=== PATIENT | female | born 1970 | race Hispanic/Latino ===

== ENCOUNTER 2016-12-28 08:05 | Day surgery (SDC) | payer OTHER ==
[~2016-12-28] VITALS: Ht 162.6 cm; Wt 71.0 kg
[~2016-12-28 08:05] MED LIST: ACET-171 PO; BENZ200C44 PO; CHOL10008 PO; DULO30CA50 PO; LORA5TAB8 PO; MELO-259 PO; TIZA4CAP8 PO
[2016-12-28 08:32] VITALS: BP 124/84; PULSE 97; RESP 16; O2SAT 99
[2016-12-28] MEDS ORDERED: 0.9% Sodium Chloride 1,000 ML IV PRN (08:52)
[2016-12-28] MEDS ORDERED: fentaNYL-PF 50 mCg/mL 2 mL Inj IVPUSH PRN (08:55)
[2016-12-28] MEDS ORDERED: Sodium Chloride LOK Flush 10 mL Syringe IV PRN (08:55)
--- NOTE | 2016-12-28 09:21 | PCM.ENDEGD ---
EGD Date of Service: Dec 28, 2016 Physician Js Newell MD Pre Procedure Diagnosis: Dysphagia Post Procedure Dx & Findings: Esophagitis gastritis possible Vang's Procedure Esophagogastroduodenoscopy PROCEDURE IN DETAIL: After proper sedation, Olympus video endoscope was inserted into patient's mouth and esophagus was successfully intubated. Scope introduced esophagus. Esophagus showed normal shiny whitish mucosa consistent with squamous cell component. Z line was not intact at 35 cm from the incisors. There was a 2 cm patch of salmon-colored mucosa.. Narrow banding done. 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 Four-quadrant biopsies obtained every 2 cm. Stomach further events to the stomach. Antrum showed isolated redness and healing erosions. Biopsies obtained. Proximal stomach appeared normal with normal rugae folds with normal appearing mucosa.. Cardia fundus body antrum pylorus were all visualized. Retroflexion was done. Stomach was easily inflated and deflatable using air. Scope further events to the distal duodenum. Duodenum revealed normal villous structures with normal appearing folds without any mass ulcer erosion. Impression Possible Vang's esophagus Gastritis with gastric erosions Recommendation Await biopsy Prilosec 20 mg once a day Presedation Assessment Risks and Benefits Informed consent was obtained from the patient after all risks and benefits including but not limited to drug reaction, infection, pain, bleeding, perforation, as well as alternatives were discussed. Patient monitoring Continuous pulse oximetry, cardiac monitoring, blood pressure monitoring, IV access, and oxygen at 2L per nasal cannula. Periprocedural Fentanyl: Fentanyl 100mcg Incrementally Midazolam: Midazolam 4mg Incrementally Complications There were no periprocedural complications identified. Post Procedure Plan Post Procedure Recommendations 1. Restrict activities today. 2. Resume normal activities in the morning. 3. Resume medications. 4. GERD behavioral modification: - Avoid fatty, acidic, spicy, large meals - Do not lie down after meals - Do not eat or drink anything for at least 2 1/2 hours before going to bed at night - Discontinue tobacco and alcohol - Decrease or avoid caffeine - Avoid chocolate and mints - Decrease weight - Avoid aspirin and non steroidal anti-inflammatory agents (NSAID) such as Aleve, Advil, Mobic, Naproxen, Ibuprofen, etc 5. Add proton pump inhibitor. Take 30 minutes before 1st meal of the day. 6. Patient informed of normal post procedure side effects as bloating, drowsiness, blood streaking in the stool 7. If gastric biopsy reveal H.pylori, continue with appropriate treatment 8. If small bowel biopsy reveals celiac, continue with appropriate treatment 9. Please don't hesitate to call me with any questions Js Newell MD Dec 28, 2016 09:21
[2016-12-28 09:23] VITALS: BP 133/80; PULSE 81; RESP 14; O2SAT 96
[2016-12-28 09:33] VITALS: BP 116/70; PULSE 79; RESP 14; O2SAT 96
[2016-12-28 09:43] VITALS: BP 114/69; PULSE 78; RESP 16; O2SAT 97
[2016-12-28 09:53] VITALS: BP 111/74; PULSE 76; RESP 16; O2SAT 100
--- NOTE | 2017-01-02 13:30 | PATH ---
SURGICAL PATHOLOGY Attending Physician:Js Newell M.D. CASE STATUS: Signed Out PATIENT NAME: KARAN LAIRD PID: [id number] : 1970 DATE COLLECTED:12/28/2016 20:12 SPECIMEN: 1: Stomach, Antrum, Biopsy 2: Esophagus, Biopsy CLINICAL HISTORY: 1). GASTRIC ANTRUM BIOPSY 2). DISTAL ESOPHAGUS BIOPSY FINAL DIAGNOSIS: 1. Gastric Antrum Biopsy: Reactive gastropathy, antral mucosa. Positive for intestinal metaplasia. Negative for Helicobacter organisms by immunohistochemical stains. Negative for dysplasia and malignancy. 2. Distal Esophagus Biopsy: Squamocolumnar mucosa with inflammatory changes consistent with reflux. Negative for intestinal/Vang's metaplasia. Negative for dysplasia and malignancy. ICD10 K29.70, K31.89 GROSS DESCRIPTION: The specimen is received in two formalin filled containers labeled with the patient's name. 1). The specimen is sublabeled "gastric antrum" and consists of 2 portions of tissue which aggregate to 0.4 x 0.3 x 0.2 CM. The specimen is entirely submitted in cassette 1A. 2). The specimen is sublabeled "distal esophagus" and consists of 5 portions of tissue which aggregate to 0.3 x 0.3 x 0.2 CM. The specimen is entirely submitted in cassette 2A. 12/28/2016 DAC MICRO DESCRIPTION: 1) Sections are of gastric antral mucosa with reactive gastropathy and focal intestinal metaplasia. No Helicobacter organisms are identified on H&E stains. Immunohistochemical stains are performed to further evaluate for Helicobacter organisms. The patient tissue is stained with monoclonal antibody to Helicobacter pylori (SP48). The positive and negative controls stain appropriately. RESULT: The patient tissue shows no staining. INTERPRETATION: The gastric mucosa is negative for Helicobacter pylori by immunohistochemical stains. * This test was developed and its performance characteristics determined by [employer]. It has not been cleared or approved by the [place]. Food and Drug Administration. The FDA has determined that such clearance or approval is not necessary. This test is used for clinical purposes. It should not be regarded as investigational or for research. 2) Please see diagnosis. ICD-9 CODES: CPT CODES: 1: 94481, 46057 2: 59265 Electronically Signed Out Elisa Adams MD [facility] [address], [place] [address] Technical component performed at [facility], [address], [place], [address]
== END 2016-12-28 23:59 | disposition home or self-care (01) ==
LOC: END 08:05
PROVIDERS: ATTEND Internal Medicine
DX: K29.70 Gastritis, unspecified, without bleeding (principal); K31.89 Other diseases of stomach and duodenum; K21.9 Gastro-esophageal reflux disease without esophagitis; M79.7 Fibromyalgia
CPT/HCPCS: 43239; G0500; J2250; J3010; J7030